=== PATIENT | male | born 1945 | race Caucasian/White ===

== ENCOUNTER 2020-03-04 06:34 | Outpatient (CLI) | payer MEDICARE, SELFPAY ==
--- NOTE | ~2020-03-04 | MR_ITS ---
EXAMINATION: MR brain/brain stem wo con DATE: 03/04/2020 09:59 INDICATION: Parkinson's disease. TECHNIQUE: Magnetic resonance imaging (MRI) of the brain and brainstem was performed without intraven ous contrast. Sequences included sagittal and axial T1-weighted FSE, axial diffusion-weighted FS EPI, axial T2*-weighted GRE, axial T2-weighted FLAIR Propeller, and axial T2-weighted Propeller. Apparent diffusion coefficient (ADC) maps were created. COMPARISON: None. FINDINGS: There are scattered areas of nonspecific increased T2-weighted signal intensity in the cere bral white matter. There is no intracranial hemorrhage, acute infarction, or abnormal intracranial ma ss lesion. The ventricles are normal in size. The paranasal sinuses are clear. The orbits are normal. The mastoid air cells are normal. IMPRESSION: 1. Moderate nonspecific cerebral white matter disease, which likely represents chronic small vessel i schemic disease. Reviewed, dictated and finalized at location A. 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 Moderate nonspecific cerebral white matter disease, which likely represents chronic small vessel ischemic disease.
--- NOTE | 2020-03-07 12:14 | WPDNEUROLOGY ---
Neurology EEG Report General Information Date of Study: 03/04/20 TEST eeg DIAGNOSIS Parkinson's disease CONDITION OF RECORDING awake drowsy and sleep EEG NUMBER [id number] CLINICAL HISTORY patient reported that he had noted shaking and difficulties in walking and at times he feels that he will stumble and fall EEG DESCRIPTION basic resting occipital frequency consists of large amount of well-organized low to medium voltage 8 to 10 hertz per 2nd alpha admixed with low-voltage 15 to 18 hertz per 2nd beta. During drowsiness low-voltage beta activity seen diffusely admixed with waxing and waning posterior alpha rhythm. Bilateral symmetrical sleep activity seen during sleep photic stimulation produced normal drive. Non paroxysmal. Nonfocal. Nonlateralizing. IMPRESSION No significant abnormalities noted
== END 2020-03-04 06:35 | disposition home or self-care (01) ==
PROVIDERS: PCP Internal Medicine; Visit Provider Psychiatry & Neurology Neurology
DX: G20 Parkinson's disease (principal); R90.82 White matter disease, unspecified
CPT/HCPCS: 70551; 95816

== ENCOUNTER → 2021-12-05 07:33 | Outpatient (CLI) | payer MEDICARE, SELFPAY ==
--- NOTE | ~2021-12-05 | MR_ITS ---
EXAMINATION: MR lumbar spine wo con DATE: 12/05/2021 08:15 INDICATION: Chronic low back pain. TECHNIQUE: Magnetic resonance imaging (MRI) of the lumbar spine was performed without intravenous con trast. Sequences included sagittal T2-weighted FSE, sagittal T2-weighted FS FSE, sagittal T1-weighted FSE, and axial T2-weighted FSE. COMPARISON: None FINDINGS: There is 10 degrees dextroscoliosis of lower lumbar spine and 7 degrees levocurvature of th oracolumbar spine. There is 3 mm anterolisthesis of L2 on L3 and 3 mm retrolisthesis of L4 on L5. The re is a hemangioma in L3. There is mildly decreased disc height at L2-L3 and moderately decreased dis c height at L3-L4. There is severely decreased disc height at L4-L5 with endplate remodeling and 1/5 height loss of L4 and L5 vertebral bodies. There is mildly decreased disc height at L5-S1. The distal spinal cord signal intensity is normal. The conus medullaris is at L1. The following disc levels are specifically discussed: L1-L2: The disc does not extend beyond the endplate margin. There is severe right and moderate left f acet joint osteoarthritis. There is no neural foraminal stenosis. There is no central canal stenosis. L2-L3: The disc is bulging and has an annular fissure. There is severe right and moderate left facet joint osteoarthritis. There is mild bilateral neural foraminal stenosis. There is mild central canal stenosis. L3-L4: The disc is bulging and has an annular fissure. There is severe bilateral facet joint osteoart hritis. There is mild bilateral neural foraminal stenosis. There is mild central canal stenosis. L4-L5: The disc is bulging and has an annular fissure. There is severe bilateral facet joint osteoart hritis. There is moderate bilateral neural foraminal stenosis. There is mild central canal stenosis. L5-S1: The disc is bulging and has an annular fissure. There is severe bilateral facet joint osteoart hritis. There is moderate right and mild left neural foraminal stenosis. There is mild central canal stenosis. IMPRESSION: 1. Severe lumbar spondylosis. 2. Scoliosis. Reviewed, dictated and finalized at location A.
== END ==
PROVIDERS: PCP Internal Medicine; Visit Provider Physical Medicine & Rehabilitation Pain Medicine
DX: M51.26 Other intervertebral disc displacement, lumbar region (principal); M47.896 Other spondylosis, lumbar region; M41.9 Scoliosis, unspecified
CPT/HCPCS: 72148